=== PATIENT | male | born 1965 | race Caucasian/White ===

== ENCOUNTER 2017-07-28 14:49 | Emergency (ER) | payer MEDICARE, MEDICAID ==
[2017-07-28] MEDS ORDERED: NORMAL SALINE 1000 ML 1,000 ML IV ONE (16:11)
[2017-07-28] MEDS ORDERED: KETOROLAC TROMETHAMINE INJ/PF 30 MG/1 ML SDV IV ONE (16:14)
[2017-07-28] MEDS ORDERED: ONDANSETRON HCL INJ/PF 4 MG/2 ML SDV IV ONE (16:14)
--- NOTE | 2017-07-28 16:50 | RADIOLOGY REPORT (SQ) ---
EXAM DESCRIPTION: CT LTD RENAL STONE PROTOCOL ON COMPLETED DATE/TIME: 07/28/2017 4:31 pm REASON FOR STUDY: left flank pain COMPARISON: None. TECHNIQUE: CT scan of the abdomen and pelvis performed without intravenous or oral contrast. Images reviewed with lung, soft tissue, and bone windows. Reconstructed coronal and sagittal MPR images revi ewed. All images stored on PACS. All CT scanners at this facility use dose modulation, iterative reconstruction, and/or weight based d osing when appropriate to reduce radiation dose to as low as reasonably achievable (ALARA). [facility]: Dose Right [facility]: CareDose [facility]: Dose Right [facility]: Teradose 4D [facility]: Smart Credii RADIATION DOSE: CT Rad equipment meets quality standard of care and radiation dose reduction techniq ues were employed. CTDIvol: 27.2 mGy. DLP: 1623 mGy-cm.mGy. LIMITATIONS: None. FINDINGS: LOWER CHEST: No significant findings. No nodules or infiltrates. NON-CONTRASTED LIVER, SPLEEN, ADRENALS: Evaluation limited by lack of IV contrast. No identified sign ificant masses. PANCREAS: Fatty infiltration of the pancreas. No masses. No peripancreatic inflammatory changes. GALLBLADDER: Prior cholecystectomy. RIGHT KIDNEY AND URETER: No suspicious masses. Assessment limited by lack of IV contrast. No signif icant calcifications. No hydronephrosis or hydroureter. LEFT KIDNEY AND URETER: Very small nonobstructing 2-3 mm calculus in the mid-lower pole of the kidne y. Assessment limited by lack of IV contrast. No hydroureter. AORTA AND RETROPERITONEUM: No aneurysm. No retroperitoneal masses or adenopathy. BOWEL AND PERITONEAL CAVITY: Constipation. No obvious masses or inflammatory changes. No free fluid . APPENDIX: Normal. PELVIS, BLADDER, AND ABDOMINAL WALL:No abnormal masses. No free fluid. Bladder normal. BONES: No significant findings. OTHER: No other significant finding. IMPRESSION: 1 Small nonobstructing left renal calculus. 2 Marked constipation. 3. Additional findings as above. COMMENT: Quality ID # [id number]: Final reports with documentation of one or more dose reduction techniques (e.g., Automated exposure control, adjustment of the mA and/or kV according to patient size, use of iterative reconstruction technique) TECHNICAL DOCUMENTATION: JOB ID: [id number] [employer]- All Rights Reserved Reading location - IP/workstation name: [email or web address]
--- NOTE | 2017-07-28 16:52 | ER Document Report ---
ED General - General Chief Complaint: Abdominal Pain Stated Complaint: FLANK PAIN Time Seen by Provider: 07/28/17 16:07 - HPI Patient complains to provider of: Left flank pain Notes: Patient coming in for evaluation left flank pain. States ongoing for the last few days. Patient states now having blood in his urine. Also states dysuria. No history of trauma. No other past medical history. No fevers chills nausea vomiting. - Related Data Allergies/Adverse Reactions: No Known Allergies Allergy (Unverified 07/28/17 14:52) Past Medical History - Social History Smoking Status: Never Smoker Family History: Reviewed & Not Pertinent Patient has suicidal ideation: No Patient has homicidal ideation: No - Past Medical History Cardiac Medical History: Reports: Hx Hypertension Renal/ Medical History: Denies: Hx Peritoneal Dialysis Psychiatric Medical History: Reports: Hx Depression Review of Systems - Review of Systems Constitutional: No symptoms reported EENT: No symptoms reported Cardiovascular: No symptoms reported Respiratory: No symptoms reported Gastrointestinal: No symptoms reported Genitourinary: Flank pain, Hematuria Male Genitourinary: No symptoms reported Musculoskeletal: No symptoms reported Skin: No symptoms reported Hematologic/Lymphatic: No symptoms reported Neurological/Psychological: No symptoms reported -: Yes All other systems reviewed and negative Physical Exam - Vital signs Vitals: Temp Pulse Resp BP Pulse Ox 99.2 F 113 H 20 103/72 98 07/28/17 14:56 07/28/17 14:56 07/28/17 14:56 07/28/17 14:56 07/28/17 14:56 Interpretation: Normal - General General appearance: Appears well, Alert - HEENT Head: Normocephalic, Atraumatic Eyes: Normal Pupils: PERRL - Respiratory Respiratory status: No respiratory distress Chest status: Nontender Breath sounds: Normal Chest palpation: Normal - Cardiovascular Rhythm: Regular Heart sounds: Normal auscultation Murmur: No - Abdominal Inspection: Normal, Obese Distension: No distension Bowel sounds: Normal Tenderness: Nontender Organomegaly: No organomegaly - Back Back: Normal, Nontender - Extremities General upper extremity: Normal inspection, Nontender, Normal color, Normal ROM , Normal temperature General lower extremity: Normal inspection, Nontender, Normal color, Normal ROM , Normal temperature, Normal weight bearing. No: Arsenio's sign - Neurological Neuro grossly intact: Yes Cognition: Normal Orientation: AAOx4 [place] Coma Scale Eye Opening: Spontaneous Nano Coma Scale Verbal: Oriented [place] Coma Scale Motor: Obeys Commands Nano Coma Scale Total: 15 Speech: Normal Motor strength normal: LUE, RUE, LLE, RLE Sensory: Normal - Psychological Associated symptoms: Normal affect, Normal mood - Skin Skin Temperature: Warm Skin Moisture: Dry Skin Color: Normal Course - Re-evaluation Re-evalutation: 07/28/17 18:56 Patient does have a kidney stone and kidney concerned maybe the patient passed a kidney stone earlier as he does still have hematuria. X-ray also does show significant constipation. Will give the patient MiraLAX to help out with constipation recommend using Tylenol Motrin for pain control will give Zofran updated family agrees with assessment plan will discharge. - Vital Signs Vital signs: Temp Pulse Resp BP Pulse Ox 99.2 F 113 H 20 103/72 98 07/28/17 14:56 07/28/17 14:56 07/28/17 14:56 07/28/17 14:56 07/28/17 14:56 - Laboratory Result Diagrams: 07/28/17 17:35 07/28/17 17:35 Laboratory results interpreted by me: 07/28/17 07/28/17 16:20 17:35 WBC 11.2 H Urine Blood MODERATE H Ur Leukocyte Esterase TRACE H Discharge - Discharge Clinical Impression: Nephrolithiasis Constipation Qualifiers: Constipation type: unspecified constipation type Qualified Code(s): K59.00 - Constipation, unspecified Hematuria Qualifiers: Hematuria type: unspecified type Qualified Code(s): R31.9 - Hematuria, unspecified Condition: Good Instructions: Constipation ([facility]), Kidney Stone ([facility]) Additional Instructions: Your laboratory work does not show any signs of significant infection. Your x- ray of abdomen does show that you are constipated and that you do have a small kidney stone in your left kidney. As well as kidney stone staging kidney does not cause any problems. Do believe the blood that was seen urine more likely from a previously passed stone. We recommend using MiraLAX for constipation. Take Tylenol Motrin for pain control Zofran for nausea follow-up with your primary care physician in 1 week. Prescriptions: Ibuprofen [Motrin 600 Mg Tablet] 600 mg PO TID #60 tablet Ondansetron [Zofran Odt] 4 mg PO Q6 PRN #30 tab.rapdis PRN Reason: For Nausea/Vomiting Polyethylene Glycol 3350 [Miralax Powder 17 gm/Packet] 1 packet PO DAILY #1 pkg Forms: Return to Work
[2017-07-28 17:02] LABS: APPEARANCE,URINE CLEAR; BILIRUBIN,URINE NEGATIVE (NEGATIVE); COLOR,URINE YELLOW; GLUCOSE, URINE NEGATIVE (NEGATIVE); KETONES,URINE NEGATIVE (NEGATIVE); LEUKOCYTE ESTERASE,URINE TRACE (NEGATIVE); NITRITE,URINE NEGATIVE (NEGATIVE); PROTEIN,URINE NEGATIVE (NEGATIVE); URINE SPECIFIC GRAVITY 1.014; UROBILINOGEN,URINE NEGATIVE mg/dL (<2.0)
[2017-07-28 17:52] LABS: ABSOLUTE BASOPHILS # (AUTO) 0.1 10^3/uL (0.0-0.2); ABSOLUTE EOSINOPHILS # (AUTO) 0.4 10^3/uL (0.0-0.6); ABSOLUTE LYMPHOCYTES (AUTO) 2.3 10^3/uL (0.5-4.7); ABSOLUTE MONOCYTES (AUTO) 0.9 10^3/uL (0.1-1.4); ABSOLUTE NEUT (AUTO) 7.5 10^3/uL (1.7-8.2); BASOPHILS % (AUTO) 0.5 % (0-2); EOSINOPHILS % (AUTO) 3.6 % (0-6); HEMATOCRIT 46.3 % (37.9-51.0); HEMOGLOBIN 15.8 g/dL (13.5-17.0); LYMPHOCYTES % (AUTO) 20.8 % (13-45); MEAN CORPUSCULAR HEMOGLOBIN 30.3 pg (27.0-33.4); MEAN CORPUSCULAR HGB CONC 34.1 g/dL (32.0-36.0); MEAN CORPUSCULAR VOLUME 89 fl (80-97); PLATELET COUNT 314 10^3/uL (150-450); RED BLOOD COUNT 5.22 10^6/uL (4.35-5.55); RED CELL DISTRIBUTION WIDTH 13.7 % (11.5-14.0); SEGMENTED NEUTROPHILS % (AUTO) 67.1 % (42-78); TOTAL CELLS COUNTED % (AUTO) 100 %; WHITE BLOOD COUNT 11.2 10^3/uL (4.0-10.5)
[2017-07-28 19:04] VITALS: BP 111/84
== END 2017-07-28 19:04 | disposition home or self-care (01) ==
LOC: ER 14:49
DX: K59.00 Constipation, unspecified (principal); N20.0 Calculus of kidney; R31.9 Hematuria, unspecified; R10.9 Unspecified abdominal pain; R30.0 Dysuria; I10 Essential (primary) hypertension
CPT/HCPCS: 99284; 96361; 96374; 96375; 36415; 85025; 81001; 76380; J1885; J2405; J7030

== ENCOUNTER 2017-10-31 22:10 | Emergency (ER) | payer MEDICARE, MEDICAID ==
--- NOTE | 2017-10-31 23:22 | ER Document Report ---
ED General - General Chief Complaint: Psych Problem Stated Complaint: PSYCH PROBLEM Time Seen by Provider: 10/31/17 22:44 Notes: Patient is a 52-year old male with a past medical history of morbid obesity, schizophrenia, depression, anxiety, hypertension, hyperlipidemia, who presents with his mother with concerns of increasing agitation, homicidal and suicidal ideation. The patient has apparently not taking any of his medications for the past 2 days stating that they make him feel confused and disoriented. His mother at the bedside reports that approximately every 3-4 years the patient does require a medication adjustment when he becomes unstable and feels that we are in a similar situation at this time. The patient denies any acute medical complaints. Nothing is been noted to improve or worsen his symptoms since onset. Patient denies any active suicidal ideation at this time. - Related Data Allergies/Adverse Reactions: No Known Allergies Allergy (Unverified 07/28/17 14:52) Past Medical History - General Information source: Patient, Relative - Social History Smoking Status: Never Smoker Frequency of alcohol use: None Drug Abuse: None Lives with: Parents Family History: Reviewed & Not Pertinent Patient has suicidal ideation: Yes Patient has homicidal ideation: Yes - Past Medical History Cardiac Medical History: Reports: Hx Hypertension Renal/ Medical History: Denies: Hx Peritoneal Dialysis Psychiatric Medical History: Reports: Hx Depression Review of Systems - Review of Systems Notes: Constitutional: Negative for fever. HENT: Negative for sore throat. Eyes: Negative for visual changes. Cardiovascular: Negative for chest pain. Respiratory: Negative for shortness of breath. Gastrointestinal: Negative for abdominal pain, vomiting or diarrhea. Genitourinary: Negative for dysuria. Musculoskeletal: Negative for back pain. Skin: Negative for rash. Neurological: Negative for headaches, weakness or numbness. 10 point ROS negative except as marked above and in HPI. Physical Exam - Vital signs Vitals: Temp Pulse Resp BP Pulse Ox 98.8 F 117 H 22 H 126/88 H 94 10/31/17 22:28 10/31/17 22:28 10/31/17 22:28 10/31/17 22:28 10/31/17 22:28 Interpretation: Tachycardic Notes: PHYSICAL EXAMINATION: GENERAL: Well-appearing, well-nourished and in no acute distress. HEAD: Atraumatic, normocephalic. EYES: Pupils equal round and reactive to light, extraocular movements intact, sclera anicteric, conjunctiva are normal. ENT: nares patent, oropharynx clear without exudates. Moist mucous membranes. NECK: Normal range of motion, supple without lymphadenopathy LUNGS: Breath sounds clear to auscultation bilaterally and equal. No wheezes rales or rhonchi. HEART: Regular rate and rhythm without murmurs ABDOMEN: Soft, morbidly obese abdomen, nontender, normoactive bowel sounds. No guarding, no rebound. No masses appreciated. EXTREMITIES: Normal range of motion, no pitting or edema. No cyanosis. NEUROLOGICAL: No focal neurological deficits. Moves all extremities spontaneously and on command. PSYCH: Mild cognitive delay, somewhat agitated but easily redirected SKIN: Warm, Dry, normal turgor, no rashes or lesions noted. Course - Re-evaluation Re-evalutation: 10/31/17 23:21 Patient presents after discontinuing all of his home medications including his medications for anxiety, depression and schizophrenia for the past 2 days. He reports he has not slept in 2 days and his mother reports that he has made homicidal threats towards his sister and been more aggressive at home. She states that every 4-5 years this happens and the patient's medications need to be adjusted. The patient currently denies any suicidal or direct homicidal ideation. He has agreed to remain voluntarily although I have cautioned him that I insist that he remains in the emergency department and be seen by psychiatry and that should he want to leave we will be forced place an involuntary commitment. He has agreed and states that this should not be necessary as he knows he needs to be seen. He has requested an antipsychotic to help him sleep. His medical screening exam is otherwise unremarkable. Medical screening labs are pending. 11/01/17 04:10 Medical screening labs unremarkable. Patient is medically cleared for evaluation and disposition per psychiatry in the morning - Vital Signs Vital signs: Temp Pulse Resp BP Pulse Ox 98.8 F 117 H 22 H 126/88 H 94 10/31/17 22:28 10/31/17 22:28 10/31/17 22:28 10/31/17 22:28 10/31/17 22:28 - Laboratory Result Diagrams: 10/31/17 23:15 10/31/17 23:15 Laboratory results interpreted by me: 10/31/17 10/31/17 23:15 23:15 WBC 10.8 H RBC 5.58 H Alkaline Phosphatase 167 H Salicylates < 1.0 L Acetaminophen < 10 L Discharge - Discharge Clinical Impression: Homicidal ideation, Suicidal ideation, Aggressive behavior, Noncompliance with medication regimen Condition: Fair Referrals: LUL DAMIAN MD [Primary Care Provider] - Follow up as needed
[2017-10-31 23:23] LABS: ABSOLUTE BASOPHILS # (AUTO) 0.1 10^3/uL (0.0-0.2); ABSOLUTE EOSINOPHILS # (AUTO) 0.6 10^3/uL (0.0-0.6); ABSOLUTE LYMPHOCYTES (AUTO) 3.5 10^3/uL (0.5-4.7); ABSOLUTE NEUT (AUTO) 5.7 10^3/uL (1.7-8.2); BASOPHILS % (AUTO) 0.6 % (0-2); EOSINOPHILS % (AUTO) 5.1 % (0-6); HEMATOCRIT 48.9 % (37.9-51.0); HEMOGLOBIN 16.8 g/dL (13.5-17.0); LYMPHOCYTES % (AUTO) 32.5 % (13-45); MEAN CORPUSCULAR HEMOGLOBIN 30.2 pg (27.0-33.4); MEAN CORPUSCULAR HGB CONC 34.5 g/dL (32.0-36.0); MEAN CORPUSCULAR VOLUME 88 fl (80-97); MONOCYTES % (AUTO) 9.1 % (3-13); PLATELET COUNT 322 10^3/uL (150-450); RED BLOOD COUNT 5.58 10^6/uL (4.35-5.55); SEGMENTED NEUTROPHILS % (AUTO) 52.7 % (42-78); TOTAL CELLS COUNTED % (AUTO) 100 %; WHITE BLOOD COUNT 10.8 10^3/uL (4.0-10.5)
[2017-10-31] MEDS: HALOPERIDOL 5 MG TABLET PO ONE (23:25)
[2017-10-31 23:34] LABS: ALANINE AMINOTRANSFERASE 33 U/L (21-72); ALBUMIN 4.5 g/dL (3.5-5.0); ALKALINE PHOSPHATASE 167 U/L (38-126); ANION GAP 13 (5-19); ASPARTATE AMINO TRANSFERASE 24 U/L (17-59); BILIRUBIN,DIRECT 0.3 mg/dL (0.0-0.4); BILIRUBIN,TOTAL 0.4 mg/dL (0.2-1.3); BLOOD UREA NITROGEN 10 mg/dL (7-20); CALCIUM 9.3 mg/dL (8.4-10.2); CARBON DIOXIDE 25 mmol/L (22-30); CHLORIDE 106 mmol/L (98-107); GLUCOSE 103 mg/dL (75-110); POTASSIUM 4.1 mmol/L (3.6-5.0); SODIUM 143.5 mmol/L (137-145); TOTAL PROTEIN 8.2 g/dL (6.3-8.2)
[2017-10-31 23:39] LABS: ACETAMINOPHEN < 10 ug/mL (10-30); ALCOHOL < 10 mg/dL (NONE DETECTED); SALICYLATE < 1.0 mg/dL (2.0-20.0)
--- NOTE | 2017-11-01 10:02 | ER Document Report ---
Doctor's Note Notes: 11/01/17 09:58 Medical rounds: Chart reviewed and patient interviewed briefly. Vital signs are normal at present. He was hypertensive and tachypneic on arrival, but that has now resolved. Laboratory values are satisfactory. On examination, the patient is alert, oriented, and cooperative. When asked how he is feeling he says "not well" but does not offer any particular complaint. He denies any pain. He appears to be medically stable. Psych evaluation and recommendations for disposition are pending.
--- NOTE | 2017-11-01 10:27 | EKG REPORT ---
SEVERITY:- OTHERWISE NORMAL ECG - SINUS TACHYCARDIA : Confirmed by: Joshua Mackey MD 01-Nov-2017 10:26:45
[2017-11-01] MEDS ORDERED: (PENDING PHARMACY ID) (Lurasidone Hcl [Latuda] 80 MG) PO SCH (11:00)
[2017-11-01] MEDS: LURASIDONE HCL 40 MG TABLET PO ONE (12:58)
[2017-11-01] MEDS: TOPIRAMATE 100 MG TABLET PO ONE (12:59)
[2017-11-01] MEDS: SERTRALINE HCL 50 MG TABLET PO ONE (12:59)
[2017-11-01] MEDS: CLONAZEPAM 1 MG TABLET PO ONE (12:59)
[2017-11-01] MEDS: TRAZODONE HCL 50 MG TABLET PO ONE (13:00)
--- NOTE | 2017-11-01 14:51 | PSYCHOLOGICAL NOTE ---
Psych Note - Psych Note Psych Note: Reason for Consult: behavioral pt presents with family for psych eval after being referred here from [facility]. per family pt has been verbalizing recent SI. Patient disclosed that he has lost 3 nights of sleep. He reports that he forgot about taking his medication for the last 2 days (clinician notes today would be the third day). He reports that he has been overstressed because his sister treated him mainly. He reports that he thought about harming her however denies wanting to actually hurt her. When asked about suicidal ideation he stated that he thought about it however he would "not really do it. " When asked about patient's outpatient mental health provider he was unable to provide this information however stated "my mom and my sister has that information." He confirms he has been inpatient multiple times "6-7 or more times" but cannot remember the last time he has been inpatient. Clinician spoke with patient's mother and niece at bedside per patient's request. They disclosed that the patient has an outbursts similar to what he had last night approximately every 4-5 years. Patient's mother discloses that it usually means that he needs a medication adjustments. She also reports the patient is identified at between the ages of 4 and 7 years of age mentally. They were unaware the patient had forgotten to take his medication for the last 2 days. Patient's niece disclosed that the patient's mother is currently now living with her as she is now her primary care provider. The patient's sister has been taking care of the patient however she is also sick and unable to appropriately care for the patient. She requests as much information as possible in resources to assist in caring for the patient. Patient is alert and orientated to person, place, time and circumstance. Mood is euthymic with congruent affect. Patient endorses passive suicidal and homicidal ideation ie no plans, means or intent. Delusions are absent and behaviors congruent with intact reality based presentation i.e. organized and linear thought process. Eye contact is fair. Conversational speech has noticeable speech impediment. Intellectual abilities are below average range. Attention and concentration are fair. Insight, judgment, impulse control are fair. 319 (F79) unspecified intellectual disability per history provided by family 311 (F32.9) unspecified depressive disorder per history provided by patient and family Impression\\plan: Patient is recommended for overnight respite. Patient has been off his medication for the last 2 days; those medications have been restarted. Patient discloses passive suicidal and homicidal ID i.e. no plans means or intent. Patient does not meet IVC criteria per [place] GS 122C. Clinician had a long discussion with patient's family about treatment options such as removing the patient's previous [facility] services to the local area from [place]. It is also discussed options of receiving additional services; clinician provided [facility] Adult [facility] Services contact information for so family can contact for an assessment of needs. Clinician provided local resource list and conducted psychoeducation to the family in regards to the patient's diagnoses (i.e. using homicidal and suicidal thoughts as a way to communicate his thoughts and pain because his inability to effectively communicate). Patient's family disclose they will come and pick the patient up after yazdanism tomorrow. Dr. Pollack was consulted and the care management this patient; attending physician is agreement with augmentations and disposition.
[2017-11-01 21:09] LABS: APPEARANCE,URINE SLIGHTLY-CLOUDY; BILIRUBIN,URINE NEGATIVE (NEGATIVE); COLOR,URINE YELLOW; GLUCOSE, URINE NEGATIVE (NEGATIVE); KETONES,URINE NEGATIVE (NEGATIVE); LEUKOCYTE ESTERASE,URINE NEGATIVE (NEGATIVE); NITRITE,URINE NEGATIVE (NEGATIVE); PROTEIN,URINE NEGATIVE (NEGATIVE); URINE SPECIFIC GRAVITY 1.014; UROBILINOGEN,URINE NEGATIVE mg/dL (<2.0)
[2017-11-01 21:26] LABS: URINE AMPHETAMINES SCREEN NEGATIVE; URINE BARBITURATES SCREEN NEGATIVE; URINE BENZODIAZEPINES SCREEN NEGATIVE; URINE COCAINE SCREEN NEGATIVE; URINE MARIJUANA (THC) SCREEN NEGATIVE; URINE METHADONE SCREEN NEGATIVE; URINE PHENCYCLIDINE SCREEN NEGATIVE
[2017-11-01] MEDS: AMITRIPTYLINE HCL 50 MG TABLET PO SCH (21:57)
[2017-11-01] MEDS: CLONAZEPAM 1 MG TABLET PO SCH (21:58)
[2017-11-01] MEDS ORDERED: (PENDING PHARMACY ID) (Amitriptyline Hcl [Elavil 100 Mg Tablet] 100 MG) PO SCH (22:00)
[2017-11-02] MEDS ORDERED: (PENDING PHARMACY ID) (Clonazepam [Clonazepam] 0.5 MG) PO SCH (08:00)
--- NOTE | 2017-11-02 09:42 | ER Document Report ---
Doctor's Note Notes: 11/02/17 09:41 I saw and evaluated the patient. Vitals stable. Patient has no complaints at this time. No issues over night. Patient denies suicidal or homicidal ideations. No delusions or hallucinations. I will discuss plan of care with behavioral health.
[2017-11-02] MEDS ORDERED: (PENDING PHARMACY ID) (Lurasidone Hcl [Latuda] 80 MG) PO SCH (10:00)
[2017-11-02] MEDS: SERTRALINE HCL 50 MG TABLET PO SCH (11:14)
[2017-11-02] MEDS: CLONAZEPAM 1 MG TABLET PO SCH (11:14)
[2017-11-02] MEDS: TRAZODONE HCL 50 MG TABLET PO SCH (11:14)
[2017-11-02] MEDS: LURASIDONE HCL 40 MG TABLET PO SCH (11:15)
[2017-11-02] MEDS: TOPIRAMATE 100 MG TABLET PO SCH (11:15)
[2017-11-02 13:58] VITALS: BP 105/59
== END 2017-11-02 14:15 | disposition home or self-care (01) ==
LOC: ER 22:10
DX: R45.851 Suicidal ideations (principal); R45.850 Homicidal ideations; F20.9 Schizophrenia, unspecified; F41.9 Anxiety disorder, unspecified; F32.9 Major depressive disorder, single episode, unspecified; T50.906A Underdosing of unspecified drugs, medicaments and biological substances, initial encounter; Z91.138 Patient's unintentional underdosing of medication regimen for other reason; Z91.14 Patient's other noncompliance with medication regimen; I10 Essential (primary) hypertension; E66.01 Morbid (severe) obesity due to excess calories; Z68.42 Body mass index [BMI] 45.0-49.9, adult; Z79.899 Other long term (current) drug therapy; Z79.82 Long term (current) use of aspirin
CPT/HCPCS: 93005; 99285; 36415; 80307 ×4; 85025; 80053; 81001; 93010; A9270 ×10; J3490 ×2

== ENCOUNTER 2018-02-27 08:29 | Day surgery (SDC) | payer MEDICARE, MEDICAID ==
[~2018-02-27 08:29] MED LIST: PROPOFOL INJ 200 MG/20 ML VIAL IV ONE
[2018-02-27] MEDS ORDERED: DIPHENHYDRAMINE HCL 50 MG/ML VIAL IV PRN (11:36)
[2018-02-27] MEDS ORDERED: PROMETHAZINE HCL INJ 25 MG/1 ML VIAL IV PRN (11:36)
[2018-02-27] MEDS ORDERED: ACETAMINOPHEN 325 MG TABLET PO PRN (12:08)
[2018-02-27] MEDS ORDERED: DEXTROSE 5%-1/2 NORMAL SALINE 1,000 ML IV PRN (12:08)
[2018-02-27] MEDS ORDERED: PROMETHAZINE HCL INJ 25 MG/1 ML VIAL INJ PRN (12:09)
[2018-02-27] MEDS ORDERED: SIMETHICONE 80 MG TAB.CHEW PO PRN (12:09)
[2018-02-27 14:29] VITALS: BP 123/74
--- NOTE | 2018-02-27 16:51 | Operative Report ---
Operative Report DATE OF SURGERY: 02/27/18 Operative Report: The risks, benefits and alternatives of the procedure including the risks of bleeding, perforation requiring surgery are explained to the patient in detail and informed consent is obtained. The patient is brought back to the operating room and placed in the left, lateral decubital position. Timeout was called. Propofol medication is administered. Rectal examination is done which did not reveal any masses, tears or fissures. An Olympus videoscope was introduced into the patient's rectum. The scope was then carefully advanced all the way to the cecum. The cecum was identified by the usual anatomical landmarks including the ileocecal valve as well as the appendiceal office. Patient does have a redundant colon. Deep intubation of the cecum could not be performed. Prep was good. Scope was then sequentially pulled back through the various segments of the colon. Retroflexion maneuver is performed. PREOPERATIVE DIAGNOSIS: Colorectal cancer screening POSTOPERATIVE DIAGNOSIS: Mild right side colon inflammation status post biopsy. Internal hemorrhoids OPERATION: Colonoscopy with biopsy SURGEON: MARY SALGADO ANESTHESIA: LMAC TISSUE REMOVED OR ALTERED: As noted above. COMPLICATIONS: None. ESTIMATED BLOOD LOSS: None. INTRAOPERATIVE FINDINGS: As noted above. PROCEDURE: Patient tolerated the procedure well. No immediate postprocedure complications are noted. Patient discharged in good condition. Discharge date 02/27/2018. Discharge diet: Regular. Discharge activity: Regular. 2-3-week follow-up to discuss findings. Patient is instructed to call the office or proceed to the emergency room should there be any further problems or questions. 5-year surveillance colonoscopy.
== END 2018-02-27 12:50 | disposition home or self-care (01) ==
LOC: OROUT 08:29
PROVIDERS: ATTEND Internal Medicine Gastroenterology
DX: Z12.11 Encounter for screening for malignant neoplasm of colon (principal); K52.9 Noninfective gastroenteritis and colitis, unspecified; K64.8 Other hemorrhoids; I10 Essential (primary) hypertension; E66.9 Obesity, unspecified; E78.5 Hyperlipidemia, unspecified; Z68.42 Body mass index [BMI] 45.0-49.9, adult; Z79.899 Other long term (current) drug therapy; Z79.82 Long term (current) use of aspirin
CPT/HCPCS: 45380; 88305 ×2; J2704; 812

== ENCOUNTER → 2018-03-03 | Outpatient (CLI) | payer MEDICARE, MEDICAID ==
--- NOTE | 2018-03-03 08:35 | RADIOLOGY REPORT (SQ) ---
EXAM DESCRIPTION: U/S ABDOMEN COMPLETE W/O DOP COMPLETED DATE/TIME: 03/03/2018 7:20 am REASON FOR STUDY: ELEVATED LIVER ENZYMES (R74.8) R74.8 ABNORMAL LEVELS OF OTHER SERUM ENZYMES COMPARISON: None. TECHNIQUE: Dynamic and static grayscale images acquired of the abdomen and recorded on PACS. Additio nal selected color Doppler and spectral images recorded. LIMITATIONS: Body habitus. FINDINGS: PANCREAS: Obscured by overlying bowel gas. LIVER: No masses. Echotexture normal. LIVER VASCULATURE: Normal directional flow of the main portal vein and hepatic veins. GALLBLADDER: Surgically absent. ULTRASOUND-DETECTED JORDAN'S SIGN: Not applicable. INTRAHEPATIC DUCTS AND COMMON DUCT: CBD and intrahepatic ducts normal caliber. No filling defects. AORTA: Obscured by overlying bowel gas. RIGHT KIDNEY: Normal size. Normal echogenicity. No solid or suspicious masses. No hydronephros is. No calcifications. LEFT KIDNEY: Normal size. Normal echogenicity. No solid or suspicious masses. No hydronephrosi s. No calcifications. SPLEEN: Normal size. No solid masses. PERITONEAL AND PLEURAL SPACES: No ascites or effusions. OTHER: No other significant finding. IMPRESSION: Limited study due body habitus. No focal hepatic lesions. Normal hepatic echogenicity. TECHNICAL DOCUMENTATION: JOB ID: [id number] [employer]- All Rights Reserved Reading location - IP/workstation name: [email or web address]
== END ==
LOC: RAD 06:34
PROVIDERS: ATTEND Physician Assistant
DX: R74.8 Abnormal levels of other serum enzymes (principal)
CPT/HCPCS: 76700